=== PATIENT | male | born 1955 ===

== ENCOUNTER 2025-02-06 11:15 | Inpatient (IN) | payer OTHER ==
[~2025-02-06] VITALS: Ht 172.7 cm; Wt 73.9 kg
[2025-02-06 13:37] VITALS: BP 181/90
[2025-02-06 14:02] LABS: INR 1.0
[2025-02-11 10:06] LABS: COVID-19 AG NEGATIVE (NEGATIVE)
[2025-02-12] MEDS ORDERED: ENOXAPARIN SODIUM 40 MG/0.4 ML SYRINGE SUBCUTANEO ONE (07:24)
[2025-02-12] MEDS ORDERED: CEFAZOLIN SODIUM 1,000 MG VIAL ONE ×2 (07:24→21:17)
[2025-02-12] MEDS ORDERED: SURGIFLO APPLICATOR 1 EACH APPL TOP ONE (09:03)
[2025-02-12] MEDS ORDERED: HEMOSTATIC MATRIX 1 KIT KIT TOP ONE (09:03)
[2025-02-12] MEDS ORDERED: BUPIVACAINE HCL 30 ML VIAL IJ ONE (09:30)
[2025-02-12] MEDS ORDERED: SUGAMMADEX SODIUM 200 MG/2 ML VIAL IV ONE (11:49)
[2025-02-12] MEDS ORDERED: OxyCODONE HCL 5 MG TABLET (ROXICODONE) PO PRN (12:15)
[2025-02-12] MEDS ORDERED: ONDANSETRON HCL 2 MG/ML VIAL IV PRN (12:15)
[2025-02-12] MEDS ORDERED: MORPHINE SULFATE 4 MG/ML CARTRIDGE IV PRN (12:15)
[2025-02-12] MEDS ORDERED: RINGERS SOLUTION,LACTATED 1,000 ML IV SCH (12:15)
[2025-02-12] MEDS ORDERED: METOPROLOL TARTRATE 5MG/5ML AMPUL IV PRN (13:45)
[2025-02-12] MEDS ORDERED: METOCLOPRAMIDE HCL 10 MG TABLET PO SCH (17:00)
[2025-02-12] MEDS ORDERED: GABAPENTIN 300 MG CAPSULE PO SCH (17:00)
[2025-02-12] MEDS ORDERED: FAMOTIDINE/PF 20 MG/2 ML VIAL IV SCH (21:00)
[2025-02-12] MEDS ORDERED: DOCUSATE SODIUM 100MG CAP PO SCH (21:00)
[2025-02-12] MEDS ORDERED: CEFAZOLIN SODIUM 1,000 MG VIAL IV SCH (21:00)
[2025-02-12] MEDS ORDERED: FAMOTIDINE/PF 20 MG/2 ML VIAL ONE (21:17)
[2025-02-12] MEDS ORDERED: METOCLOPRAMIDE HCL 5 MG/ML VIAL ONE (23:51)
[2025-02-12] MEDS ORDERED: GABAPENTIN 300 MG CAPSULE PO ONE (23:51)
[2025-02-13 06:46] LABS: BASO % 0.3 % (0.1-1.2); EOS # 0.08 (0.04-0.54); EOS % 1.1 % (0.7-7.0); LYMPH # 1.02 (1.18-3.74); LYMPH % 14.1 % (19.3-53.1); MEAN PLATELET VOLUME 10.10 fl (9.4-12.4); MONO # 0.93 (0.24-0.82); NEUT # 5.17 (1.56-6.13); NEUT % 71.5 % (34.0-71.1); RED CELL DISTRIBUTION WIDTH 11.9 % (11.6-14.4)
[2025-02-13 07:01] LABS: MONO % 12.9 % (4.7-12.5)
[2025-02-13 07:09] LABS: BUN CREA RATIO 10.0 (7.0-25.0); CREATININE SERUM 0.88 mg/dL (0.70-1.30); GFR 85.61; GLUCOSE FASTING 115.0 mg/dL (65-100); OSMOLALITY SERUM 285.0 MOSM/KG (275-295)
[2025-02-13] MEDS ORDERED: CEFAZOLIN SODIUM 1,000 MG VIAL ONE (08:53)
[2025-02-13] MEDS ORDERED: ENOXAPARIN SODIUM 40 MG/0.4 ML SYRINGE SUBCUTANEO SCH (09:00)
[2025-02-13] MEDS ORDERED: HYDROCHLOROTHIAZIDE 25 MG TABLET PO SCH (09:00)
== END 2025-02-13 10:00 | disposition home or self-care (01) | DRG 708 ==
LOC: O/R 02-12 06:00 → SURH 02-12 07:00 → O/R 02-13 10:00
PROVIDERS: ADMIT Urology; ATTEND Urology
PROC: 8E0W4CZ Robotic Assisted Procedure of Trunk Region, Percutaneous Endoscopic Approach (ICD-10-PCS; 2025-02-12)
PROC: 0VT04ZZ Resection of Prostate, Percutaneous Endoscopic Approach (ICD-10-PCS; principal; 2025-02-12 07:00)
DX: C61 Malignant neoplasm of prostate (principal)
CPT/HCPCS: 55866; S2900